=== PATIENT | female | born 1975 | race American Indian/Alaskan Native ===

== ENCOUNTER 2020-08-17 10:23 | Emergency (ER) | payer OTHER ==
[~2020-08-17] VITALS: Ht 185.4 cm; Wt 152.4 kg
[~2020-08-17 10:23] MED LIST: METFORMIN HCL500 M2 PO; PRENATABS FA TA1 TAB PO
[2020-08-17] MEDS ORDERED: CLEOCIN HCL300 MG (11:12)
[2020-08-17] MEDS ORDERED: MOTRIN PM CAPL1 EACH (11:13)
[2020-08-17] MEDS ORDERED: DOXYCYCLINE HY100 MG PO (16:50)
[2020-08-17] MEDS ORDERED: INTESTINEX680 M2 PO (16:50)
== END 2020-08-17 17:19 | disposition home or self-care (01) ==
LOC: ER 10:23
DX: L02.212 Cutaneous abscess of back [any part, except buttock and flank] (principal); L03.312 Cellulitis of back [any part except buttock and flank]; B96.89 Other specified bacterial agents as the cause of diseases classified elsewhere; B96.0 Mycoplasma pneumoniae [M. pneumoniae] as the cause of diseases classified elsewhere; Z03.818 Encounter for observation for suspected exposure to other biological agents ruled out

== ENCOUNTER 2022-06-14 11:41 | Outpatient (CLI) | payer OTHER ==
[~2022-06-14 11:41] MED LIST changes: +CLEOCIN HCL300 MG; +DOXYCYCLINE HY100 MG PO; +INTESTINEX680 M2 PO; +MOTRIN PM CAPL1 EACH
== END 2022-06-14 11:50 | disposition home or self-care (01) ==
LOC: TOM 11:41
PROVIDERS: ATTEND Internal Medicine Pulmonary Disease
DX: R06.02 Shortness of breath (principal); E66.01 Morbid (severe) obesity due to excess calories; Z86.16 Personal history of COVID-19